=== PATIENT | female | born 1940 | race Caucasian/White ===

== ENCOUNTER 2016-05-05 11:08 | Emergency (ER) | payer OTHER ==
[~2016-05-05 11:08] MED LIST: CEFPODOXIME PR100 MG PO; FLORASTOR250 MG PO; GLUCOSE4 GM PO; LEVEMIR100 UNIT/1 SQ; NORVASC10 MG PO; NOVOLOG1 UNIT/0.0 SQ; ZESTRIL10 MG PO
== END 2016-05-05 15:56 | disposition home or self-care (01) ==
LOC: ER 11:08
DX: H81.11 Benign paroxysmal vertigo, right ear (principal); E11.9 Type 2 diabetes mellitus without complications; I10 Essential (primary) hypertension; Z90.710 Acquired absence of both cervix and uterus; Z79.899 Other long term (current) drug therapy; Z79.4 Long term (current) use of insulin
CPT/HCPCS: 36415; 87502; 96361; 96374; 96375